=== PATIENT | male | born 1990 | race Caucasian/White ===

== ENCOUNTER 2024-11-19 15:34 | Inpatient (IN) | payer OTHER ==
[2024-11-19 16:25] VITALS: BMI 24.6
[2024-11-19] MEDS ORDERED: NALOXONE (NARCAN) HCL 4 MG/0.1 ML SPRAY NS PRN (17:01)
[2024-11-19] MEDS ORDERED: LOPERAMIDE HCL 2 MG CAPSULE PO PRN (17:01)
[2024-11-19] MEDS ORDERED: NICOTINE POLACRILEX 2 MG LOZENGE BC PRN (17:01)
[2024-11-19] MEDS ORDERED: ACETAMINOPHEN 325 MG TABLET (FP) PO PRN (17:01)
[2024-11-19] MEDS ORDERED: MAG HYDROX/AL HYDROX/SIMETH 30 ML UNIT-DOSE CUP PO PRN (17:01)
[2024-11-19] MEDS ORDERED: MAGNESIUM HYDROX 2400MG/30ML ORAL SUSPENSION 30 ML CUP PO PRN (17:01)
[2024-11-19] MEDS ORDERED: IBUPROFEN 600 MG TABLET (FP) PO PRN (17:01)
[2024-11-19] MEDS ORDERED: IBUPROFEN 400 MG TABLET (FP) PO PRN (17:01)
[2024-11-19] MEDS ORDERED: POLYETHYLENE GLYCOL (HEALTHYLAX) 3350 17 GM PACKET PO PRN (17:01)
[2024-11-19] MEDS ORDERED: BENZOCAINE/MENTHOL (CHLORASEPTIC ) LOZENGE MM PRN (17:01)
[2024-11-19] MEDS ORDERED: guaiFENesin 600 MG TABLET.ER (FP) PO PRN (17:01)
[2024-11-19] MEDS ORDERED: BENZONATATE 200 MG CAPSULE PO PRN (17:01)
[2024-11-19] MEDS: THIAMINE 100 MG TABLET PO SCH (21:40)
[2024-11-19] MEDS: SULFAMETHOXAZOLE/TRIMETHOPRIM 800MG/160MG D.S. TABLET PO SCH (21:40)
[2024-11-19] MEDS: MELATONIN 5 MG TABLETS PO SCH (21:40)
[2024-11-20] MEDS: PRENATAL VITAMINS W/ FOLIC ACID TABLET (FP) PO SCH (10:13)
[2024-11-20 11:37] LABS: MCHC 32.2 g/dl (32.3-36.5); MEAN CELL VOLUME 89.4 fl (79.0-92.2); MEAN PLT VOLUME 10.5 fl (9.4-12.4); RDW 13.0 % (12.0-15.6)
[2024-11-20 11:51] LABS: URINE APPEARANCE CLEAR; URINE BILIRUBIN NEGATIVE (NEGATIVE); URINE COLOR YELLOW; URINE GLUCOSE (UA) NEGATIVE (NEGATIVE); URINE KETONE NEGATIVE (NEGATIVE); URINE LEUK ESTERASE NEGATIVE (NEGATIVE); URINE NITRITE NEGATIVE (NEGATIVE); URINE PROTEIN NEGATIVE (NEGATIVE); URINE UROBILINOGEN 1.0 mg/dL (0.2-1.0)
[2024-11-20 12:12] LABS: CO2 29.0 mmol/L (21-32)
[2024-11-20 12:13] LABS: GLUCOSE,RANDOM 103.0 mg/dL (74-106)
[2024-11-20 12:16] LABS: CREATININE 0.9 mg/dL (0.55-1.3); SGOT/AST 18.0 U/L (15-37); SGPT/ALT 19.0 U/L (13-61)
[2024-11-20 12:17] LABS: TOT PROT 6.7 g/dl (6.4-8.2)
[2024-11-20 12:18] LABS: ALK PHOS 89.0 U/L (45-117)
[2024-11-20 12:29] LABS: SYPHILIS W/ RPR CONF NON-REACTIVE (NONREACTIVE)
[2024-11-20 13:11] LABS: HCV DIAGNOSTIC IN-HOUSE W/RFLX REACTIVE (NONREACTIVE)
[2024-11-20 13:57] LABS: HIV INTERPRETATION NEGATIVE (NEGATIVE)
[2024-11-20] MEDS: CLINDAMYCIN PHOSPHATE 1% TOPICAL GEL 30 GM TUBE TP SCH (14:26)
[2024-11-20] MEDS: GABAPENTIN 400 MG CAPSULE PO ONE (21:35)
[2024-11-20] MEDS: MIRTAZAPINE 30 MG TABLET PO ONE (21:36)
[2024-11-21] MEDS: GABAPENTIN 400 MG CAPSULE PO SCH (10:49)
[2024-11-21] MEDS: NICOTINE POLACRILEX 4 MG GUM BUC PRN (10:50)
[2024-11-21] MEDS: GABAPENTIN 300 MG CAPSULE PO SCH (12:02)
[2024-11-21] MEDS: MIRTAZAPINE 30 MG TABLET PO SCH (21:05)
[2024-11-30] MEDS: ATOMOXETINE HCL 25 MG CAPSULE PO SCH (10:22)
[2024-12-04] MEDS: GABAPENTIN 300 MG CAPSULE PO SCH (13:14)
[2024-12-11] MEDS: ATOMOXETINE HCL 40 MG CAPSULE PO SCH (11:17)
[2024-12-17 20:52] VITALS: RESP 18
[2024-12-18 07:20] VITALS: TEMP 97.3
[2024-12-18 09:14] VITALS: BP 118/74; PULSE 99
== END 2024-12-18 10:25 | disposition home or self-care (01) | DRG 772 ==
LOC: YASAS 15:34 → Y5N 18:20 → Y3NR 11-29 12:01 → Y5N 11-29 12:05
PROVIDERS: ADMIT Neuromusculoskeletal Medicine & OMM; ATTEND Psychiatry & Neurology Pain Medicine
PROC: HZ42ZZZ Group Counseling for Substance Abuse Treatment, Cognitive-Behavioral (ICD-10-PCS; principal; 2024-11-19)
DX: F11.20 Opioid dependence, uncomplicated (principal); F14.20 Cocaine dependence, uncomplicated; F17.210 Nicotine dependence, cigarettes, uncomplicated; F33.1 Major depressive disorder, recurrent, moderate; F25.9 Schizoaffective disorder, unspecified; F90.9 Attention-deficit hyperactivity disorder, unspecified type; F41.9 Anxiety disorder, unspecified; L03.113 Cellulitis of right upper limb; R76.8 Other specified abnormal immunological findings in serum; Z59.02 Unsheltered homelessness
CPT/HCPCS: 36415; 80053; 80305; 80307; 81003; 85027; 86780; 86803; 87389; 87522; 87811; 93005; 93010